=== PATIENT | female | born 1960 | race Two or more races ===

== ENCOUNTER 2016-12-04 10:36 | Emergency (ER) | payer MEDICAID ==
[2016-12-04 11:29] VITALS: BP 119/49
== END 2016-12-04 12:15 | disposition home or self-care (01) ==
LOC: ER 10:39
DX: M25.471 Effusion, right ankle (principal); Z88.0 Allergy status to penicillin; F17.210 Nicotine dependence, cigarettes, uncomplicated; Z53.29 Procedure and treatment not carried out because of patient's decision for other reasons; M25.571 Pain in right ankle and joints of right foot
CPT/HCPCS: 93971